=== PATIENT | female | born 1965 | race Caucasian/White ===

== ENCOUNTER 2016-09-05 20:14 | Inpatient (IN) | payer MEDICARE, MEDICAID ==
[~2016-09-05] VITALS: Ht 165.1 cm; Wt 71.8 kg
[2016-09-05 20:47] LABS: BILIRUBIN,URINE NEGATIVE (NEG); GLUCOSE,URINE NEGATIVE (NEG); NITRITE,URINE NEGATIVE (NEG); PROTEIN,URINE NEGATIVE (NEG-TRACE)
[2016-09-05] MEDS ORDERED: ONDANSETRON PF 4 MG/2 ML VIAL. ONE (20:47)
--- NOTE | 2016-09-05 20:54 | PHYS DOC ---
Past Medical History Past Medical History: DVT, GERD, Kidney Stone Past Surgical History: Cholecystectomy, Hysterectomy, Tonsillectomy, Tubal ligation, Other Additional Past Surgical Histo: subclavial stent , titanium plate c5-c6, kidney stone removal, frozen shoul Alcohol Use: None Drug Use: None Adult General Chief Complaint Chief Complaint: FLANK PAIN HPI HPI Patient is a 50 year old female who presents with complaint of right-sided flank pain. Patient states that her symptoms started suddenly today prior to arrival. Patient states that she is having colicky 10 out of 10 pain in her right flank. Patient admits to history kidney stones and states that her symptoms feel very similar to previous episodes. Patient states that she last had a kidney stone pass in June 2016. Patient took Tylenol prior to arrival with no improvement in symptoms. Patient states that she is currently visiting family from out of town. Denies any known exacerbating factors. Review of Systems Review of Systems Constitutional: Denies fever or chills [] Eyes: Denies change in visual acuity, redness, or eye pain [] HENT: Denies nasal congestion or sore throat [] Respiratory: Denies cough or shortness of breath [] Cardiovascular: No additional information not addressed in HPI [] GI: Nausea, vomiting, abdominal pain, denies bloody stools or diarrhea [] : Right flank pain, denies dysuria or hematuria [] Musculoskeletal: Denies back pain or joint pain [] Integument: Denies rash or skin lesions [] Neurologic: Denies headache, focal weakness or sensory changes [] Endocrine: Denies polyuria or polydipsia [] Current Medications Current Medications Current Medications Medications (Trade) Dose Ordered Sig/Denilson Start Time Stop Time Status Last Admin Dose Admin Ceftriaxone Sodium (Rocephin 1gm Ivpb For Omni) 50 ml @ 100 mls/hr 1X ONCE 09/05/16 21:30 09/05/16 21:59 09/05/16 21:36 100 MLS/HR Famotidine 20 mg 20 mg 1X ONCE 09/05/16 21:00 09/05/16 21:01 DC 09/05/16 20:56 20 MG Ketorolac Tromethamine (Toradol) 30 mg 1X ONCE 09/05/16 21:30 09/05/16 21:31 DC 09/05/16 21:35 30 MG Morphine Sulfate 4 mg 4 mg PRN Q15MIN PRN 09/05/16 21:00 09/06/16 20:59 09/05/16 21:35 4 MG Ondansetron HCl (Zofran) 4 mg 1X ONCE 09/05/16 21:00 09/05/16 21:01 DC 09/05/16 20:57 4 MG Sodium Chloride (Iv Sodium Chloride 0.9% 1000ml Bag) 1,000 ml @ 1,000 mls/hr Q1H 09/05/16 21:00 09/05/16 21:59 09/05/16 20:55 1,000 MLS/HR Allergies Allergies Allergies Coded Allergies Type Severity Reaction Last Updated Verified Penicillins Allergy Intermediate Itching 09/05/16 Yes simvastatin Allergy Intermediate Unknown 09/05/16 Yes acetaminophen Adverse Reaction Intermediate Nausea and Vomiting 09/05/16 Yes codeine Adverse Reaction Intermediate Nausea and Vomiting 09/05/16 Yes hydrocodone Adverse Reaction Intermediate Nausea and Vomiting 09/05/16 Yes Physical Exam Physical Exam Constitutional: Alert, afebrile, appears in moderate to severe discomfort. [] HENT: Normocephalic, atraumatic, bilateral external ears normal, oropharynx moist, no oral exudates, nose normal. [] Eyes: PERRLA, EOMI, conjunctiva normal, no discharge. [] Neck: Normal range of motion, no tenderness, supple, no stridor. [] Cardiovascular:Heart rate regular rhythm, no murmur [] Lungs & Thorax: Bilateral breath sounds clear to auscultation [] Abdomen: Bowel sounds normal, soft, no tenderness, no masses, no pulsatile masses. [] Skin: Warm, dry, no erythema, no rash. [] Back: No midline tenderness, right CVA tenderness, no flank ecchymosis. [] Extremities: No tenderness, no cyanosis, no clubbing, ROM intact, no edema. [] Neurologic: Alert and oriented X 3, normal motor function, normal sensory function, no focal deficits noted. [] Current Patient Data Vital Signs Vital Signs Date Time Temp Pulse Resp B/P Pulse Ox O2 Delivery O2 Flow Rate FiO2 09/05/16 21:35 20 99 Room Air 09/05/16 20:24 97.5 80 148/100 97.5 Lab Values Laboratory Tests Test 09/05/16 20:40 White Blood Count 15.1x10^3/uL (4.0-11.0) H Red Blood Count 4.74x10^6/uL (3.50-5.40) Hemoglobin 14.5g/dL (12.0-15.5) Hematocrit 44.3% (36.0-47.0) Mean Corpuscular Volume 94fL (79-100) Mean Corpuscular Hemoglobin 31pg (25-35) Mean Corpuscular Hemoglobin Concent 33g/dL (31-37) Red Cell Distribution Width 13.8% (11.5-14.5) Platelet Count 331x10^3/uL (140-400) Neutrophils (%) (Auto) 76% (31-73) H Lymphocytes (%) (Auto) 12% (24-48) L Monocytes (%) (Auto) 8% (0-9) Eosinophils (%) (Auto) 2% (0-3) Basophils (%) (Auto) 1% (0-3) Neutrophils # (Auto) 11.5x10^3uL (1.8-7.7) H Lymphocytes # (Auto) 1.9x10^3/uL (1.0-4.8) Monocytes # (Auto) 1.2x10^3/uL (0.0-1.1) H Eosinophils # (Auto) 0.4x10^3/uL (0.0-0.7) Basophils # (Auto) 0.2x10^3/uL (0.0-0.2) Urine Collection Type Unknown Urine Color Yellow Urine Clarity Cloudy Urine pH 5.0 Urine Specific [place] >=1.030 Urine Protein Negativemg/dL (NEG-TRACE) Urine Glucose (UA) Negativemg/dL (NEG) Urine Ketones (Stick) Negativemg/dL (NEG) Urine Blood Moderate (NEG) Urine Nitrite Negative (NEG) Urine Bilirubin Negative (NEG) Urine Urobilinogen Dipstick 1.0mg/dL (0.2 mg/dL) Urine Leukocyte Esterase Moderate (NEG) Urine RBC 11-20/HPF (0-2) Urine WBC 20-40/HPF (0-4) Urine Squamous Epithelial Cells Mod/LPF Urine Amorphous Sediment Present/HPF Urine Bacteria Few/HPF (0-FEW) Urine Hyaline Casts Few/HPF Urine Mucus Marked/LPF Sodium Level 143mmol/L (136-145) Potassium Level 3.9mmol/L (3.5-5.1) Chloride Level 107mmol/L (98-107) Carbon Dioxide Level 21mmol/L (21-32) Anion Gap 15 (6-14) H Blood Urea Nitrogen 23mg/dL (7-20) H Creatinine 0.9mg/dL (0.6-1.0) Estimated GFR (Cockcroft-Gault) 65.8 BUN/Creatinine Ratio 26 (6-20) H Glucose Level 124mg/dL (70-99) H Calcium Level 9.4mg/dL (8.5-10.1) Total Bilirubin 0.3mg/dL (0.2-1.0) Aspartate Amino Transferase (AST) 11U/L (15-37) L Alanine Aminotransferase (ALT) 23U/L (14-59) Alkaline Phosphatase 137U/L (46-116) H Total Protein 7.3g/dL (6.4-8.2) Albumin 4.3g/dL (3.4-5.0) Albumin/Globulin Ratio 1.4 (1.0-1.7) Lipase 173U/L (73-393) Laboratory Tests 09/05/16 20:40 Laboratory Tests 09/05/16 20:40 EKG EKG Not performed [] Radiology/Procedures Radiology/Procedures [facility] [address] [place] [address] IMAGING REPORT Signed PATIENT: KITA DIETRICH ACCOUNT: [id number] : 1965 LOCATION: ER AGE: 50 SEX: F EXAM STATUS: REG ER ORD. PHYSICIAN: PEDRO PAULSON MD REASON: right-sided flank pain, history of kidney stones PROCEDURE: ABDOMEN PELVIS WO CONTRAST PROCEDURE CT of the abdomen and pelvis without contrast HISTORY Right flank pain for 2 days and nausea TECHNIQUE Noncontrast helical CT scanning of the abdomen and pelvis was performed. Without GI contrast, the sensitivity to detect GI tract pathology is decreased. Without IV contrast, the sensitivity to detect organ pathology is decreased. FINDINGS The liver is homogeneous in appearance on this noncontrast study and is normal in size. The spleen is homogeneous appearance on this noncontrast study and is normal in size. The pancreas is homogeneous appearance on this noncontrast study and is not enlarged. There has been prior cholecystectomy. No adrenal masses are seen. There is an 8 millimeter stone at at that proximal right ureter just below the UPJ with moderate right hydronephrosis and perinephric edema. The urinary bladder wall is smooth. No focal aneurysmal dilatation of the abdominal aorta is seen. No enlarged abdominal or pelvic lymphadenopathy is seen. No free intraperitoneal fluid or free intraperitoneal air is seen. No obstructive bowel pattern or inflammatory changes are seen. The lung bases are clear. No osteolytic process is seen. The appendix is normal. The uterus and left ovary are not seen and could be small or surgically removed. There is a cystic mass in the right hemipelvis posteriorly that measures 5.6 by 2.8 centimeters. IMPRESSION 1. 8 millimeter stone proximal right ureter with moderate hydronephrosis. 2. Partially cystic mass in the right hemipelvis posteriorly is presumably an abnormal right ovary. This would be difficult to visualize by transabdominal ultrasound due to its far posterior location. Recommend correlation with CA 125. Consider a follow-up transvaginal ultrasound as an outpatient. Electronically signed by: Lauryn Ortiz MD (Sep 05, 2016 21:35:02) DICTATED and SIGNED BY: LAURYN ORTIZ III, MD DATE: 09/05/162134 CC: PEDRO PAULSON MD; NO PCP ~ [] Course & Med Decision Making Course & Med Decision Making Pertinent Labs and Imaging studies reviewed. (See chart for details) The patient was given IV morphine, Zofran, IV fluids. Patient found to have an 8 mm obstructing right ureteral stone with concomitant urinary tract infection. The patient was started on IV Rocephin. Patient will be admitted to the hospital for continued treatment of symptoms and likely need for cystoscopy and ureteral stent placement. Patient had to Dr. Plascencia. A consult was placed to Dr. Hinojosa. Mickie Disclaimer Mickie Disclaimer This electronic medical record was generated, in whole or in part, using a voice recognition dictation system. Departure Departure Impression: Primary Impression: Right ureteral stone Additional Impression: UTI (urinary tract infection) Disposition: 09 ADMITTED INPATIENT Admitting Physician: Molly Plascencia Condition: STABLE Problem Qualifiers Additional Impression: UTI (urinary tract infection) Urinary tract infection type: site unspecified Hematuria presence: with hematuria Qualified Code: N39.0 - Urinary tract infection, site not specified PEDRO PAULSON MD Sep 05, 2016 20:54
[2016-09-05 20:57] LABS: BASO # 0.2 x10^3/uL (0.0-0.2); BASO % 1 % (0-3); EOS % 2 % (0-3); HEMATOCRIT 44.3 % (36.0-47.0); HEMOGLOBIN 14.5 g/dL (12.0-15.5); LYMPH # 1.9 x10^3/uL (1.0-4.8); LYMPH % 12 % (24-48); MEAN CORPUSCULAR HEMOGLOBIN 31 pg (25-35); MEAN CORPUSCULAR HGB CONC 33 g/dL (31-37); MEAN CORPUSCULAR VOLUME 94 fL (79-100); MONO % 8 % (0-9); NEUT % 76 % (31-73); PLATELET COUNT 331 x10^3/uL (140-400); RED BLOOD COUNT 4.74 x10^6/uL (3.50-5.40); RED CELL DISTRIBUTION WIDTH 13.8 % (11.5-14.5); WHITE BLOOD COUNT 15.1 x10^3/uL (4.0-11.0)
[2016-09-05] MEDS: MORPHINE SULFATE 4 MG/ML DISP.SYRIN. IV/SQ PRN ×2 (20:57→21:35)
[2016-09-05 20:58] LABS: BACTERIA,URINE FEW /HPF (0-FEW); SQUAMOUS EPITHELIAL CELL,UR MOD /LPF; WBC,URINE 20-40 /HPF (0-4)
[2016-09-05] MEDS ORDERED: FAMOTIDINE 20 MG/2 ML VIAL IVP ONE (21:00)
[2016-09-05] MEDS ORDERED: ONDANSETRON PF 4 MG/2 ML VIAL. IV ONE (21:00)
[2016-09-05] MEDS ORDERED: IV NORMAL SALINE 1000ML BAG 1,000 ML IV SCH (21:00)
[2016-09-05 21:10] LABS: CALCIUM 9.4 mg/dL (8.5-10.1); CREATININE 0.9 mg/dL (0.6-1.0); GFR 65.8; POTASSIUM 3.9 mmol/L (3.5-5.1)
[2016-09-05 21:15] LABS: ALBUMIN 4.3 g/dL (3.4-5.0); ALBUMIN/GLOBULIN RATIO 1.4 (1.0-1.7); TOTAL BILIRUBIN 0.3 mg/dL (0.2-1.0); TOTAL PROTEIN 7.3 g/dL (6.4-8.2)
[2016-09-05] MEDS ORDERED: KETOROLAC TROMETHAMINE 30 MG/ML SYRINGE. IV ONE (21:30)
[2016-09-05] MEDS ORDERED: CEFTRIAXONE 1GM IVPB FOR OMNI 50 ML IV ONE (21:30)
--- NOTE | 2016-09-05 21:36 | RAD ---
PROCEDURE CT of the abdomen and pelvis without contrast HISTORY Right flank pain for 2 days and nausea TECHNIQUE Noncontrast helical CT scanning of the abdomen and pelvis was performed. Without GI contrast, the sensitivity to detect GI tract pathology is decreased. Without IV contrast, the sensitivity to detect organ pathology is decreased. FINDINGS The liver is homogeneous in appearance on this noncontrast study and is normal in size. The spleen is homogeneous appearance on this noncontrast study and is normal in size. The pancreas is homogeneous appearance on this noncontrast study and is not enlarged. There has been prior cholecystectomy. No adrenal masses are seen. There is an 8 millimeter stone at at that proximal right ureter just below the UPJ with moderate right hydronephrosis and perinephric edema. The urinary bladder wall is smooth. No focal aneurysmal dilatation of the abdominal aorta is seen. No enlarged abdominal or pelvic lymphadenopathy is seen. No free intraperitoneal fluid or free intraperitoneal air is seen. No obstructive bowel pattern or inflammatory changes are seen. The lung bases are clear. No osteolytic process is seen. The appendix is normal. The uterus and left ovary are not seen and could be small or surgically removed. There is a cystic mass in the right hemipelvis posteriorly that measures 5.6 by 2.8 centimeters. IMPRESSION 1. 8 millimeter stone proximal right ureter with moderate hydronephrosis. 2. Partially cystic mass in the right hemipelvis posteriorly is presumably an abnormal right ovary. This would be difficult to visualize by transabdominal ultrasound due to its far posterior location. Recommend correlation with CA 125. Consider a follow-up transvaginal ultrasound as an outpatient. Electronically signed by: Siva Lopez MD (Sep 05, 2016 21:35:02)
[2016-09-05] MEDS ORDERED: ONDANSETRON PF 4 MG/2 ML VIAL. IV PRN (22:00)
--- NOTE | 2016-09-05 22:42 | ACF ---
Admit Criteria Forms Admit Criteria Forms Admit Criteria Forms RENAL COLIC AND KIDNEY STONES Clinical Indications for Admission to Inpatient Care ( Place 'X' for any and all applicable criteria): Admission is indicated for ANY ONE of the following (1)(2)(3)(4): [X]I. Inpatient admission required rather than observation care (Also use Renal Colic and Kidney Stones: Observation Care Criteria as appropriate) because of ANY ONE of the following: [ ]a) Severe pain requiring acute inpatient management [X]b) Urinary tract infection identified [ ]c) Vomiting that is severe or persistent [ ]d) IV fluid required rather than oral rehydration to replace significant ongoing (eg, for greater than 24 hours) losses (greater than 200 mL/hr or 3 L/m2 per day) [ ]e) Percutaneous or open drainage (eg, abscess, biliary tract) procedures [ ]f) Other condition, treatment or monitoring requiring inpatient admission [ ]II. Impending acute renal failure [ ]III. Bilateral obstruction [ ]IV. Single kidney with obstruction [ ]V. Transplanted kidney with obstruction [ ]. Possible open surgical procedure needed (eg, pyonephrosis, stone removal not amendable to other means) [ ]VII. Hemodynamic instability Extended stay beyond goal length of stay may be needed for(2)(3)(31): [ ]a) Failed initial stone removal (32) [ ]b) Pyonephrosis [ ]c) Obstructive uropathy with urinary tract infection [ ]d) Procedure complications [ ]e) Comorbidities (22) The original [employer] content created by [employer] has been revised. The portions of the content which have been revised are identified through the use of italic text or in bold, and [facility] has neither reviewed nor approved the modified material. All other unmodified content is copyright [employer]. Please see references footnoted in the original [employer] edition 2016 PATIENCE GARCIA Sep 05, 2016 22:42
[2016-09-05 23:05] VITALS: BP 121/70
[2016-09-05] MEDS: MORPHINE SULFATE 4 MG/ML DISP.SYRIN. IV PRN (23:46)
[2016-09-06] MEDS: IV NORMAL SALINE 1000ML BAG 1,000 ML IV SCH ×2 (00:30→06:00)
[2016-09-06] MEDS: MORPHINE SULFATE 4 MG/ML DISP.SYRIN. IV PRN ×5 (01:50→20:13)
[2016-09-06 03:59] VITALS: BP 105/81
[2016-09-06 05:58] LABS: BASO # 0.1 x10^3/uL (0.0-0.2); BASO % 1 % (0-3); EOS % 3 % (0-3); HEMATOCRIT 40.3 % (36.0-47.0); HEMOGLOBIN 13.2 g/dL (12.0-15.5); LYMPH # 2.1 x10^3/uL (1.0-4.8); LYMPH % 22 % (24-48); MEAN CORPUSCULAR HEMOGLOBIN 31 pg (25-35); MEAN CORPUSCULAR HGB CONC 33 g/dL (31-37); MEAN CORPUSCULAR VOLUME 95 fL (79-100); MONO % 9 % (0-9); NEUT % 65 % (31-73); PLATELET COUNT 266 x10^3/uL (140-400); RED BLOOD COUNT 4.26 x10^6/uL (3.50-5.40); RED CELL DISTRIBUTION WIDTH 13.8 % (11.5-14.5); WHITE BLOOD COUNT 9.4 x10^3/uL (4.0-11.0)
[2016-09-06 06:09] LABS: CALCIUM 8.6 mg/dL (8.5-10.1); CREATININE 0.8 mg/dL (0.6-1.0); GFR 75.3; POTASSIUM 3.7 mmol/L (3.5-5.1)
[2016-09-06 07:00] VITALS: BP 108/74
[2016-09-06] MEDS: IV 1/2 NORMAL SALINE 1,000 ML IV SCH ×3 (10:15→21:41)
[2016-09-06] MEDS ORDERED: ONDANSETRON PF 4 MG/2 ML VIAL. IV PRN (10:15)
[2016-09-06 11:00] VITALS: BP 100/62
[2016-09-06] MEDS ORDERED: CHOL10007 PO (11:22)
[2016-09-06] MEDS ORDERED: ASPI81TA2 PO (11:22)
[2016-09-06] MEDS ORDERED: ASCO500T2 PO (11:22)
[2016-09-06] MEDS ORDERED: TOPI50TA4 PO (11:22)
[2016-09-06] MEDS ORDERED: GEMF600T3 PO (11:22)
[2016-09-06] MEDS ORDERED: TRAZ100T12 PO (11:22)
[2016-09-06] MEDS ORDERED: PANT40TA5 PO (11:22)
[2016-09-06] MEDS: CHOLECALCIFEROL (VITAMIN D3) 1,000 UNIT TABLET PO SCH (12:14)
[2016-09-06] MEDS: ASCORBIC ACID 500 MG TABLET PO SCH (12:14)
[2016-09-06] MEDS: TOPIRAMATE 25 MG TABLET. PO SCH ×2 (12:14→20:13)
[2016-09-06] MEDS: PANTOPRAZOLE 40 MG TABLET. PO SCH (12:14)
[2016-09-06] MEDS: GEMFIBROZIL 600 MG TABLET. PO SCH ×2 (12:14→20:13)
[2016-09-06] MEDS ORDERED: HYDROCODONE/APAP 5/325MG TABLET. PO PRN (12:15)
[2016-09-06] MEDS: ASPIRIN 81 MG TAB.CHEW PO SCH (12:15)
--- NOTE | 2016-09-06 12:18 | PDOC1 ---
History and Physical Date of Admission Date of Admission 09/05/16 Identification/Chief Complaint Chief Complaint right flank pain Problems: Source Source: Chart review, Patient History of Present Illness History of Present Illness HPI HPI Patient is a 50 year old female who presents with complaint of right-sided flank pain yesterday. pt has had h/o right side kidney stone 4 times in the past, last time was 06/2016 , she dosenot know the type and not taking any specific meds for it. She comes from [place] visiting family, need to return [place] for rt ovary cyst sx next . Pt said the pain was right abd, flank, 10/10. no dysuria. CT showed 8 millimeter stone proximal right ureter with moderate hydronephrosis. Past Medical History Past Medical History DVT, GERD, Kidney Stone Past Surgical History Past Surgical History Cholecystectomy, Hysterectomy, Tonsillectomy, Tubal ligation, Other Additional Past Surgical Histo: subclavial stent , titanium plate c5-c6, kidney stone removal, frozen shoul Alcohol Use: None Family History Family History: Cancer Social History Smoke: <1 pack per day ALCOHOL: social Drugs: None Current Problem List Problem List Problems Medical Problems: (1) Right ureteral stone Status: Acute (2) UTI (urinary tract infection) Status: Acute Current Medications Current Medications Current Medications Medications (Trade) Dose Ordered Sig/Denilson Start Time Stop Time Status Last Admin Dose Admin Ascorbic Acid (Vitamin C) 500 mg DAILY 09/06/16 12:00 Aspirin (Children'S Aspirin) 81 mg DAILY 09/06/16 12:00 Ceftriaxone Sodium 1 gm/ Sodium Chloride 50 ml @ 100 mls/hr Q24H 09/06/16 22:00 Ceftriaxone Sodium (Rocephin 1gm Ivpb For Omni) 50 ml @ 100 mls/hr 1X ONCE 09/05/16 21:30 09/05/16 21:59 DC 09/05/16 21:36 100 MLS/HR Famotidine 20 mg 20 mg 1X ONCE 09/05/16 21:00 09/05/16 21:01 DC 09/05/16 20:56 20 MG Gemfibrozil (Lopid) 600 mg BID 09/06/16 12:00 Ketorolac Tromethamine (Toradol) 30 mg 1X ONCE 09/05/16 21:30 09/05/16 21:31 DC 09/05/16 21:35 30 MG Morphine Sulfate 4 mg 4 mg PRN Q2HR PRN 09/05/16 22:00 09/06/16 21:59 09/06/16 11:06 4 MG Ondansetron HCl (Zofran) 4 mg PRN Q6HRS PRN 09/06/16 10:15 Ondansetron HCl 4 mg 4 mg STK-MED ONCE 09/05/16 20:47 09/05/16 20:48 DC Pantoprazole Sodium (Protonix) 40 mg DAILY 09/06/16 12:00 Sodium Chloride (Iv Sodium Chloride 0.45%) 1,000 ml @ 125 mls/hr Q8H 09/06/16 10:15 09/06/16 10:15 125 MLS/HR Sodium Chloride (Iv Sodium Chloride 0.9% 1000ml Bag) 1,000 ml @ 1,000 mls/hr Q1H 09/05/16 21:00 09/05/16 21:59 DC 09/05/16 20:55 1,000 MLS/HR Tamsulosin HCl (Flomax) 0.4 mg QHS 09/06/16 21:00 Topiramate (Topamax) 50 mg BID 09/06/16 12:00 Trazodone HCl (Desyrel) 200 mg HS 09/06/16 21:00 Vitamin D (Vitamin D3) 1,000 unit DAILY 09/06/16 12:00 Allergies Allergies Allergies Coded Allergies Type Severity Reaction Last Updated Verified Penicillins Allergy Intermediate Itching 09/05/16 Yes simvastatin Allergy Intermediate Unknown 09/05/16 Yes acetaminophen Adverse Reaction Intermediate Nausea and Vomiting 09/05/16 Yes codeine Adverse Reaction Intermediate Nausea and Vomiting 09/05/16 Yes hydrocodone Adverse Reaction Intermediate Nausea and Vomiting 09/05/16 Yes ROS Review of System CONSTITUTIONAL: No fever or chills EYES: No recent changes SKIN: No rash or itching CARDIOVASCULAR: No chest pain, syncope, palpitations, or edema RESPIRATORY: No SOB or cough GASTROINTESTINAL: No nausea, vomiting or abdominal pain NEUROLOGICAL: No headaches or weakness ENDOCRINE: No cold or heat intolerance GENITOURINARY: No urgency or frequency of urination MUSCULOSKELETAL: No back pain or joint pain LYMPHATICS: No enlarged lymph nodes PSYCHIATRIC: No anxiety or depression Physical Exam Physical Exam GEN.: No apparent distress. Alert and oriented. HEENT: Head is normocephalic, atraumatic NECK: Supple. LUNGS: Clear to auscultation. HEART: RRR, S1, S2 present. Peripheral pulses intact ABDOMEN: Soft, Positive bowel sounds. right abd tenderness. EXTREMITIES: Without any cyanosis. NEUROLOGIC: Normal speech, normal tone PSYCHIATRIC: Normal affect, normal mood. SKIN: No ulcerations Vitals Vitals Vital Signs Date Time Temp Pulse Resp B/P Pulse Ox O2 Delivery O2 Flow Rate FiO2 09/06/16 11:36 97 Room Air 09/06/16 11:00 98.2 67 20 100/62 98.2 Labs Labs Laboratory Tests Test 09/05/16 20:40 09/06/16 05:05 White Blood Count 15.1x10^3/uL (4.0-11.0) 9.4x10^3/uL (4.0-11.0) Red Blood Count 4.74x10^6/uL (3.50-5.40) 4.26x10^6/uL (3.50-5.40) Hemoglobin 14.5g/dL (12.0-15.5) 13.2g/dL (12.0-15.5) Hematocrit 44.3% (36.0-47.0) 40.3% (36.0-47.0) Mean Corpuscular Volume 94fL (79-100) 95fL (79-100) Mean Corpuscular Hemoglobin 31pg (25-35) 31pg (25-35) Mean Corpuscular Hemoglobin Concent 33g/dL (31-37) 33g/dL (31-37) Red Cell Distribution Width 13.8% (11.5-14.5) 13.8% (11.5-14.5) Platelet Count 331x10^3/uL (140-400) 266x10^3/uL (140-400) Neutrophils (%) (Auto) 76% (31-73) 65% (31-73) Lymphocytes (%) (Auto) 12% (24-48) 22% (24-48) Monocytes (%) (Auto) 8% (0-9) 9% (0-9) Eosinophils (%) (Auto) 2% (0-3) 3% (0-3) Basophils (%) (Auto) 1% (0-3) 1% (0-3) Neutrophils # (Auto) 11.5x10^3uL (1.8-7.7) 6.1x10^3uL (1.8-7.7) Lymphocytes # (Auto) 1.9x10^3/uL (1.0-4.8) 2.1x10^3/uL (1.0-4.8) Monocytes # (Auto) 1.2x10^3/uL (0.0-1.1) 0.8x10^3/uL (0.0-1.1) Eosinophils # (Auto) 0.4x10^3/uL (0.0-0.7) 0.3x10^3/uL (0.0-0.7) Basophils # (Auto) 0.2x10^3/uL (0.0-0.2) 0.1x10^3/uL (0.0-0.2) Urine Collection Type Unknown Urine Color Yellow Urine Clarity Cloudy Urine pH 5.0 Urine Specific [place] >=1.030 Urine Protein Negativemg/dL (NEG-TRACE) Urine Glucose (UA) Negativemg/dL (NEG) Urine Ketones (Stick) Negativemg/dL (NEG) Urine Blood Moderate (NEG) Urine Nitrite Negative (NEG) Urine Bilirubin Negative (NEG) Urine Urobilinogen Dipstick 1.0mg/dL (0.2 mg/dL) Urine Leukocyte Esterase Moderate (NEG) Urine RBC 11-20/HPF (0-2) Urine WBC 20-40/HPF (0-4) Urine Squamous Epithelial Cells Mod/LPF Urine Amorphous Sediment Present/HPF Urine Bacteria Few/HPF (0-FEW) Urine Hyaline Casts Few/HPF Urine Mucus Marked/LPF Sodium Level 143mmol/L (136-145) 146mmol/L (136-145) Potassium Level 3.9mmol/L (3.5-5.1) 3.7mmol/L (3.5-5.1) Chloride Level 107mmol/L (98-107) 112mmol/L (98-107) Carbon Dioxide Level 21mmol/L (21-32) 24mmol/L (21-32) Anion Gap 15 (6-14) 10 (6-14) Blood Urea Nitrogen 23mg/dL (7-20) 20mg/dL (7-20) Creatinine 0.9mg/dL (0.6-1.0) 0.8mg/dL (0.6-1.0) Estimated GFR (Cockcroft-Gault) 65.8 75.3 BUN/Creatinine Ratio 26 (6-20) Glucose Level 124mg/dL (70-99) 92mg/dL (70-99) Calcium Level 9.4mg/dL (8.5-10.1) 8.6mg/dL (8.5-10.1) Total Bilirubin 0.3mg/dL (0.2-1.0) Aspartate Amino Transf (AST/SGOT) 11U/L (15-37) Alanine Aminotransferase (ALT/SGPT) 23U/L (14-59) Alkaline Phosphatase 137U/L (46-116) Total Protein 7.3g/dL (6.4-8.2) Albumin 4.3g/dL (3.4-5.0) Albumin/Globulin Ratio 1.4 (1.0-1.7) Lipase 173U/L (73-393) Laboratory Tests Test 09/05/16 20:40 09/06/16 05:05 White Blood Count 15.1x10^3/uL (4.0-11.0) 9.4x10^3/uL (4.0-11.0) Red Blood Count 4.74x10^6/uL (3.50-5.40) 4.26x10^6/uL (3.50-5.40) Hemoglobin 14.5g/dL (12.0-15.5) 13.2g/dL (12.0-15.5) Hematocrit 44.3% (36.0-47.0) 40.3% (36.0-47.0) Mean Corpuscular Volume 94fL (79-100) 95fL (79-100) Mean Corpuscular Hemoglobin 31pg (25-35) 31pg (25-35) Mean Corpuscular Hemoglobin Concent 33g/dL (31-37) 33g/dL (31-37) Red Cell Distribution Width 13.8% (11.5-14.5) 13.8% (11.5-14.5) Platelet Count 331x10^3/uL (140-400) 266x10^3/uL (140-400) Neutrophils (%) (Auto) 76% (31-73) 65% (31-73) Lymphocytes (%) (Auto) 12% (24-48) 22% (24-48) Monocytes (%) (Auto) 8% (0-9) 9% (0-9) Eosinophils (%) (Auto) 2% (0-3) 3% (0-3) Basophils (%) (Auto) 1% (0-3) 1% (0-3) Neutrophils # (Auto) 11.5x10^3uL (1.8-7.7) 6.1x10^3uL (1.8-7.7) Lymphocytes # (Auto) 1.9x10^3/uL (1.0-4.8) 2.1x10^3/uL (1.0-4.8) Monocytes # (Auto) 1.2x10^3/uL (0.0-1.1) 0.8x10^3/uL (0.0-1.1) Eosinophils # (Auto) 0.4x10^3/uL (0.0-0.7) 0.3x10^3/uL (0.0-0.7) Basophils # (Auto) 0.2x10^3/uL (0.0-0.2) 0.1x10^3/uL (0.0-0.2) Urine Collection Type Unknown Urine Color Yellow Urine Clarity Cloudy Urine pH 5.0 Urine Specific [place] >=1.030 Urine Protein Negativemg/dL (NEG-TRACE) Urine Glucose (UA) Negativemg/dL (NEG) Urine Ketones (Stick) Negativemg/dL (NEG) Urine Blood Moderate (NEG) Urine Nitrite Negative (NEG) Urine Bilirubin Negative (NEG) Urine Urobilinogen Dipstick 1.0mg/dL (0.2 mg/dL) Urine Leukocyte Esterase Moderate (NEG) Urine RBC 11-20/HPF (0-2) Urine WBC 20-40/HPF (0-4) Urine Squamous Epithelial Cells Mod/LPF Urine Amorphous Sediment Present/HPF Urine Bacteria Few/HPF (0-FEW) Urine Hyaline Casts Few/HPF Urine Mucus Marked/LPF Sodium Level 143mmol/L (136-145) 146mmol/L (136-145) Potassium Level 3.9mmol/L (3.5-5.1) 3.7mmol/L (3.5-5.1) Chloride Level 107mmol/L (98-107) 112mmol/L (98-107) Carbon Dioxide Level 21mmol/L (21-32) 24mmol/L (21-32) Anion Gap 15 (6-14) 10 (6-14) Blood Urea Nitrogen 23mg/dL (7-20) 20mg/dL (7-20) Creatinine 0.9mg/dL (0.6-1.0) 0.8mg/dL (0.6-1.0) Estimated GFR (Cockcroft-Gault) 65.8 75.3 BUN/Creatinine Ratio 26 (6-20) Glucose Level 124mg/dL (70-99) 92mg/dL (70-99) Calcium Level 9.4mg/dL (8.5-10.1) 8.6mg/dL (8.5-10.1) Total Bilirubin 0.3mg/dL (0.2-1.0) Aspartate Amino Transf (AST/SGOT) 11U/L (15-37) Alanine Aminotransferase (ALT/SGPT) 23U/L (14-59) Alkaline Phosphatase 137U/L (46-116) Total Protein 7.3g/dL (6.4-8.2) Albumin 4.3g/dL (3.4-5.0) Albumin/Globulin Ratio 1.4 (1.0-1.7) Lipase 173U/L (73-393) VTE Prophylaxis Ordered VTE Prophylaxis Devices: Yes VTE Pharmacological Prophylaxi: No Assessment/Plan Assessment/Plan 1. right side proximal ureter stone, 8mm, with hydronephrosis 2. h/o multiple kidney stones 3. h/o Subclavial dvt, post stents 4. GERD 5. SIRS with possible UTI, no sepsis 6. right ovary cyst, sx next Thur plan: 1. fu with uro, may need cystoscope and stent 2. ivf 3. add flomax, ceftriaxone for now 4. pain control cont home meds SAUD MAZARIEGOS MD Sep 06, 2016 12:18
[2016-09-06 15:00] VITALS: BP 110/76
--- NOTE | 2016-09-06 16:27 | PDOC ---
Provider Note Provider Note Urology: c/c right flank pain, 8mm proximal right ureteral calculus Patient has hx of kidney stones Patient examined, chart reviewed Impression: Proximal right ureteral calculus (8mm) Flank pain-improved Plan: IV hydration, analgesia, flomax KUB in AM if stone doesn't pass spontaneously will plan Stent placement on Wednesday FAYE Owens ROY K DO Sep 06, 2016 16:27
[2016-09-06 19:00] VITALS: BP 117/67
[2016-09-06] MEDS: TAMSULOSIN 0.4 MG CAP.ER.24H. PO SCH (20:13)
[2016-09-06] MEDS: traZODone 100 MG TABLET. PO SCH (21:41)
[2016-09-06] MEDS: CEFTRIAXONE SODIUM 1 GM in IV NORMAL SALINE 50ML 50 ML IV SCH (21:45)
[2016-09-06 23:00] VITALS: BP 99/62
[2016-09-07 03:00] VITALS: BP 106/67
--- NOTE | 2016-09-07 05:29 | CONS ---
DATE OF CONSULTATION: 09/06/2016 CHIEF COMPLAINT: Right flank pain, proximal right ureteral calculus. HISTORY OF PRESENT ILLNESS: This is a 50-year-old female that presented to the Emergency Room with acute right flank pain. She does have a previous history of kidney stones. She states that she has passed about 3 spontaneously, but she had one that she had to undergo lithotripsy. She experienced some nausea and vomiting with her right ureteral colic. ALLERGIES: THE PATIENT IS ALLERGIC TO PENICILLIN, ACETAMINOPHEN, CODEINE, HYDROCODONE, AND SIMVASTATIN. The patient has a history of deep vein thrombosis, GERD, previous kidney stones. PAST SURGICAL HISTORY: She has had a cholecystectomy, hysterectomy, tonsillectomy, previous tubal ligation, placement of subclavian stent due to blood clots in her arm. She has also had a titanium plate placed at C5-C6. She has had a history of a frozen shoulder. SOCIAL HISTORY: The patient is . She denies alcohol use. She is not a smoker. REVIEW OF SYSTEMS: A 14-point review of systems performed, most significant is her HPI. MEDICATIONS: List was reviewed. PHYSICAL EXAMINATION: GENERAL DESCRIPTION: A 50-year-old female. She is alert and oriented, in no acute distress at this time. ABDOMEN: Soft, nontender. She does experience some right flank discomfort to deep palpation. The left flank was normal. There is no suprapubic tenderness. EXTREMITIES: Good range of motion. Negative for cyanosis or edema. LABORATORY STUDIES: On admission, her white blood cell count was 15.1, today it is 9.4. Her hemoglobin is 13.2, hematocrit 40.3, platelets are adequate. Chemistries, the patient's sodium 146, potassium 3.7, her BUN is 20, her creatinine is 0.8, glucose 92, calcium within normal limits at 8.6, alkaline phosphatase slightly elevated at 137. Urinalysis cloudy, moderate leukocytes, 11-20 white blood cells, 20-40 red blood cells, trace bacteria. X-RAY STUDIES: Noncontrast CT scan was performed while the patient was in the Emergency Room. This did reveal an 8 mm calculus in the proximal right ureter just below the UPJ junction. She had moderate right hydronephrosis and also showed a cystic mass involving the right ovary. IMPRESSION: 1. Proximal right ureteral calculus (8 mm). 2. Right ureteral colic - improved. 3. Ovarian cyst. PLANS: 1. I discussed the findings with the patient. 2. We will continue IV hydration, analgesia as needed, and Flomax to see if the stone will pass spontaneously. 3. I have ordered a KUB in the morning. 4. If she does not pass the stone spontaneously, I discussed with her cystoscopy, right stent placement. 5. The patient lives in [place], and she prefers to go back to [place] after we placed a stent and has shockwave lithotripsy. 6. She is also scheduled for a right oophorectomy this coming in [place]. Thank you for the opportunity to participate in the evaluation and treatment of this patient. PAUL MCKINNEY DO DR: ARYAN/arnulfo JOB#: [id number] / [id number]
[2016-09-07 06:29] LABS: BASO # 0.1 x10^3/uL (0.0-0.2); BASO % 1 % (0-3); EOS % 3 % (0-3); HEMATOCRIT 36.7 % (36.0-47.0); HEMOGLOBIN 12.4 g/dL (12.0-15.5); LYMPH # 1.5 x10^3/uL (1.0-4.8); LYMPH % 15 % (24-48); MEAN CORPUSCULAR HEMOGLOBIN 31 pg (25-35); MEAN CORPUSCULAR HGB CONC 34 g/dL (31-37); MEAN CORPUSCULAR VOLUME 92 fL (79-100); MONO % 7 % (0-9); NEUT % 74 % (31-73); PLATELET COUNT 266 x10^3/uL (140-400); RED BLOOD COUNT 3.99 x10^6/uL (3.50-5.40); RED CELL DISTRIBUTION WIDTH 13.7 % (11.5-14.5); WHITE BLOOD COUNT 10.1 x10^3/uL (4.0-11.0)
[2016-09-07 06:34] LABS: CALCIUM 8.4 mg/dL (8.5-10.1); CREATININE 0.7 mg/dL (0.6-1.0); GFR 87.9; POTASSIUM 3.9 mmol/L (3.5-5.1)
[2016-09-07 07:00] VITALS: BP 103/66
[2016-09-07] MEDS: PANTOPRAZOLE 40 MG TABLET. PO SCH (07:45)
[2016-09-07] MEDS: GEMFIBROZIL 600 MG TABLET. PO SCH ×2 (07:45→21:01)
[2016-09-07] MEDS: ASCORBIC ACID 500 MG TABLET PO SCH (07:45)
[2016-09-07] MEDS: CHOLECALCIFEROL (VITAMIN D3) 1,000 UNIT TABLET PO SCH (07:46)
[2016-09-07] MEDS: TOPIRAMATE 25 MG TABLET. PO SCH ×2 (07:46→21:01)
--- NOTE | 2016-09-07 08:37 | RAD ---
EXAM: Abdomen, single view. HISTORY: Right-sided flank pain. COMPARISON: CT dated 09/05/2016. FINDINGS: There is gas within nondistended loops of small and large bowel. There are cholecystectomy clips and clips within the left lower quadrant due to prior lower lumbar spinal fusion. There is a 6 mm faint rounded density overlying the expected course of the mid right ureter at the level of the L3-L4 disc space, possibly artifactual or the recently demonstrated ureteral stone.. IMPRESSION: 1. 6 mm round density overlying the expected location of the right mid ureter at the level of the L3-L4 disc space, artifactual or the recently demonstrated ureteral stone. 2. Nonobstructive bowel gas pattern.
[2016-09-07] MEDS: ASPIRIN 81 MG TAB.CHEW PO SCH (08:52)
[2016-09-07] MEDS: KETOROLAC 15 MG/ML VIAL. IV PRN ×2 (10:25→17:20)
[2016-09-07 11:00] VITALS: BP 137/60
[2016-09-07] MEDS: IV 1/2 NORMAL SALINE 1,000 ML IV SCH ×2 (11:59→20:15)
--- NOTE | 2016-09-07 13:36 | PDOC ---
Provider Note Provider Note UROLOGY: Right ureteral calculus KUB- poor quality, stone has migrated distally some IMPRESSION: Right ureteral calculus Right hydronephrosis Plan: Scheduled for Cysto right stent placement tomorrow Discussed with patient she appears to understand and agreeable. PAUL MCKINNEY DO Sep 07, 2016 13:36
[2016-09-07] MEDS ORDERED: MAGNESIUM HYDROXIDE 2,400 MG/30 ML ORAL.SUSP. PO PRN (13:45)
[2016-09-07] MEDS ORDERED: BISACODYL 5 MG TABLET.DR. PO PRN (13:45)
[2016-09-07 14:45] VITALS: BP 115/68
--- NOTE | 2016-09-07 16:59 | PDOC ---
PROGRESS NOTES Chief Complaint Chief Complaint Obstructing ureteral stone ASSESSMENT AND PLAN: 1. renal colic: 2/2 [address] R. appreciate Dr Hinojosa's input: planned stent placement in AM 2. Pain control: IV suboptimal. d/w pt that she can have longer-acting PO meds 3. Constipation: at baseline, now worse with narcotics. daily dulcolax Vitals Vitals Vital Signs Date Time Temp Pulse Resp B/P Pulse Ox O2 Delivery O2 Flow Rate FiO2 09/07/16 14:45 97.9 76 20 115/68 94 Room Air 97.9 Physical Exam General: Alert, Oriented X3, Cooperative Heart: Regular rate Lungs: Clear Abdomen: Normal bowel sounds, Other (TTP RLQ and R flank) Extremities: No clubbing, No edema Skin: No rashes Labs LABS Laboratory Tests Test 09/07/16 05:20 09/07/16 05:30 Sodium Level 145mmol/L (136-145) Potassium Level 3.9mmol/L (3.5-5.1) Chloride Level 112mmol/L (98-107) Carbon Dioxide Level 19mmol/L (21-32) Anion Gap 14 (6-14) Blood Urea Nitrogen 12mg/dL (7-20) Creatinine 0.7mg/dL (0.6-1.0) Estimated GFR (Cockcroft-Gault) 87.9 Glucose Level 75mg/dL (70-99) Calcium Level 8.4mg/dL (8.5-10.1) White Blood Count 10.1x10^3/uL (4.0-11.0) Red Blood Count 3.99x10^6/uL (3.50-5.40) Hemoglobin 12.4g/dL (12.0-15.5) Hematocrit 36.7% (36.0-47.0) Mean Corpuscular Volume 92fL (79-100) Mean Corpuscular Hemoglobin 31pg (25-35) Mean Corpuscular Hemoglobin Concent 34g/dL (31-37) Red Cell Distribution Width 13.7% (11.5-14.5) Platelet Count 266x10^3/uL (140-400) Neutrophils (%) (Auto) 74% (31-73) Lymphocytes (%) (Auto) 15% (24-48) Monocytes (%) (Auto) 7% (0-9) Eosinophils (%) (Auto) 3% (0-3) Basophils (%) (Auto) 1% (0-3) Neutrophils # (Auto) 7.5x10^3uL (1.8-7.7) Lymphocytes # (Auto) 1.5x10^3/uL (1.0-4.8) Monocytes # (Auto) 0.7x10^3/uL (0.0-1.1) Eosinophils # (Auto) 0.3x10^3/uL (0.0-0.7) Basophils # (Auto) 0.1x10^3/uL (0.0-0.2) Review of Systems Review of Systems currently comfortable. fentanyl not lasting very long ANTHONY VOGT MD Sep 07, 2016 16:59
[2016-09-07] MEDS ORDERED: MORPHINE SULFATE 2 MG/ML DISP.SYRIN. IV PRN (18:00)
[2016-09-07 19:00] VITALS: BP 97/52
[2016-09-07] MEDS: traZODone 100 MG TABLET. PO SCH (21:01)
[2016-09-07] MEDS: TAMSULOSIN 0.4 MG CAP.ER.24H. PO SCH (21:01)
[2016-09-07] MEDS: BISACODYL 5 MG TABLET.DR. PO SCH (21:01)
[2016-09-07] MEDS: CEFTRIAXONE SODIUM 1 GM in IV NORMAL SALINE 50ML 50 ML IV SCH (21:02)
[2016-09-07 23:00] VITALS: BP 123/66
[2016-09-08] VITALS (8 sets, daily range): BP systolic 115–137; BP diastolic 74–89
[2016-09-08] MEDS: IV 1/2 NORMAL SALINE 1,000 ML IV SCH ×2 (04:52→12:38)
[2016-09-08] MEDS ORDERED: IOHEXOL 300 MG/ML 50 ML VIAL. ONE (06:59)
[2016-09-08] MEDS ORDERED: ONDANSETRON PF 4 MG/2 ML VIAL. IV PRN (07:00)
[2016-09-08] MEDS ORDERED: FENTANYL PF 100 MCG/2 ML VIAL. IV PRN ×2 (07:00)
[2016-09-08] MEDS ORDERED: PROCHLORPERAZINE 10 MG/2 ML VIAL. IV PRN (07:00)
[2016-09-08] MEDS ORDERED: LIDOCAINE 1% 1 ML SYRINGE. ID PRN (07:00)
[2016-09-08] MEDS ORDERED: IV RINGERS,LACTATED 1000ML 1,000 ML IV SCH (07:00)
[2016-09-08] MEDS: BISACODYL 5 MG TABLET.DR. PO SCH (08:17)
[2016-09-08] MEDS: GEMFIBROZIL 600 MG TABLET. PO SCH (08:17)
[2016-09-08] MEDS: CHOLECALCIFEROL (VITAMIN D3) 1,000 UNIT TABLET PO SCH (08:17)
[2016-09-08] MEDS: TOPIRAMATE 25 MG TABLET. PO SCH (08:17)
[2016-09-08] MEDS: ASCORBIC ACID 500 MG TABLET PO SCH (08:17)
[2016-09-08] MEDS: PANTOPRAZOLE 40 MG TABLET. PO SCH (08:18)
[2016-09-08] MEDS: KETOROLAC 15 MG/ML VIAL. IV PRN (08:22)
[2016-09-08] MEDS: ASPIRIN 81 MG TAB.CHEW PO SCH (08:58)
--- NOTE | 2016-09-08 10:48 | PDOC ---
PROGRESS NOTES Chief Complaint Chief Complaint Obstructing ureteral stone ASSESSMENT AND PLAN: 1. renal colic: 2/2 obstructing stone R. appreciate Dr Hinojosa's input: planned stent placement today 2. Pain control: IV suboptimal. d/w pt that she can have longer-acting PO meds 3. Constipation: at baseline, now worse with narcotics. daily dulcolax 4. Dispo: prob home post procedure Vitals Vitals Vital Signs Date Time Temp Pulse Resp B/P Pulse Ox O2 Delivery O2 Flow Rate FiO2 09/08/16 07:00 97.8 77 16 121/86 93 Room Air 97.8 Physical Exam General: Alert, Oriented X3, Cooperative Heart: Regular rate Lungs: Clear Abdomen: Normal bowel sounds, Other (TTP RLQ and R flank) Extremities: No clubbing, No edema Skin: No rashes Review of Systems Review of Systems pain still present, but well controlled. ANTHONY VOGT MD Sep 08, 2016 10:48
[2016-09-08] MEDS ORDERED: CEFTRIAXONE 1GM IVPB FOR OMNI 50 ML IV STA (13:38)
[2016-09-08] MEDS ORDERED: CEFTRIAXONE 1GM IVPB FOR OMNI 50 ML IV ONE (13:42)
[2016-09-08] MEDS ORDERED: PROPOFOL 20 ML IV ONE (13:43)
[2016-09-08] MEDS ORDERED: LIDOCAINE 2% 100 MG/5 ML DISP.SYRIN. ONE (13:43)
[2016-09-08] MEDS ORDERED: FENTANYL PF 100 MCG/2 ML VIAL. ONE (13:43)
[2016-09-08] MEDS ORDERED: ONDANSETRON PF 4 MG/2 ML VIAL. ONE (13:43)
[2016-09-08] MEDS ORDERED: PHENYLEPHRINE in 0.9% NACL PF 1 MG/10 ML DISP.SYRIN. IV ONE (14:11)
[2016-09-08] MEDS ORDERED: EPHEDRINE PF IN SALINE 50 MG/5 ML DISP.SYRIN. IV ONE (14:22)
--- NOTE | 2016-09-08 14:41 | PDOC ---
BRIEF OPERATIVE NOTE Date: Sep 08, 2016 Pre-Op Diagnosis Right ureteral calculus (mid right ureter) Post-Op Diagnosis Same Procedure Performed Cystoscopy placement or right ureteral stent (4.8 by 26cm) Surgeon Ashish Anesthesia Type: General Specimens Obtained None Findings calculus mid right ureter Complications None Additional Remarks Tolerated well PAUL MCKINNEY DO Sep 08, 2016 14:41
--- NOTE | 2016-09-08 18:15 | OP ---
DATE OF SURGERY: 09/08/2016 PREOPERATIVE DIAGNOSES: Right flank pain, proximal right ureteral calculus (8 mm). POSTOPERATIVE DIAGNOSES: Right flank pain, proximal right ureteral calculus (8 mm). PROCEDURE: Cystoscopy, right retrograde pyelogram, placement of indwelling right ureteral stent (4.8 Emirati x 26 cm). SURGEON: Paul Mckinney DO. ANESTHESIA: General. INDICATIONS AND JUDGMENT: This is a 50-year-old female, that presented to the Emergency Room with acute right flank pain. She underwent a CT scan which revealed 8-mm calculus in the proximal right ureter. She was placed on IV hydration and analgesia. The stone migrated distally just a small distance, but she was unable to pass the stone in spite of medical therapy. Therefore, it was felt that she would benefit from cystoscopy, stent placement, in preparation for shockwave lithotripsy. This was explained to the patient. She appeared to understand and was agreeable. DESCRIPTION OF PROCEDURE: The patient was given a gram of Rocephin. She was taken to the operating room, placed on the operating room table in a supine position, given a general anesthetic, and then placed in a dorsal lithotomy position with Hill stirrups since we do not have a cystoscopy table. A C-arm was moved into position. Rigid cystoscopy was performed. The patient has a rather prominent cystocele. I had to elevate the floor of the bladder with my finger in the vaginal vault to see the right ureteral orifice. The orifice was cannulated. Contrast was injected via 8-Emirati cone-tip ureteral catheter. A filling defect was identified in the mid right ureter. Low-grade obstruction. I then advanced a 0.035 guidewire up the right ureteral orifice up the ureter and into the renal pelvis. Following that, under fluoroscopy, I advanced a 4.8 Emirati x 26-cm double-J ureteral stent over the wire, past the stone, and into the renal pelvis. The positioning appeared to be satisfactory. Therefore, the wire was removed leaving the stent in place. The instruments were removed. The patient tolerated the procedure well and was sent to recovery room in satisfactory condition. The patient has plans to leave with her and return to [facility]. She was sent home on antibiotics, pain medicine, and she is going to follow up with her urologist in [place]. PAUL MCKINNEY DO DR: Chiquis JOB#: [id number] / [id number]
--- NOTE | 2016-09-09 00:48 | DS ---
DATE OF DISCHARGE: 09/08/2016 CHIEF COMPLAINT: Flank pain. HOSPITAL COURSE: The patient is a 50-year-old woman with multiple episodes of nephrolithiasis requiring lithotripsy and stone removal, who presented to the Emergency Room with right flank pain. She indeed was found with an 8-mm stone in her right ureter. Dr. Hinojosa from Urology was consulted. As patient was unable to pass the stone herself, stone was removed and stent was placed on 09/08/2016. The patient tolerated the procedure without any difficulties and was sent home with instructions to follow up with her urologist in [place]. DISCHARGE PHYSICAL EXAMINATION: Please refer to note from same day, discharge date 09/01/2016. DISCHARGE DIAGNOSIS: Right-sided ureteral stone, status post cystoscopy with removal of ureteral stent placement on 09/08/2016. DISCHARGE DISPOSITION: To home. DISCHARGE CONDITION: Stable. DISCHARGE MEDICATIONS: Please refer to MAR. DISCHARGE INSTRUCTIONS: The patient will follow up with her PCP as well as her urologist. ANTHONY VOGT MD DR: ADALI/nts JOB#: [id number] / [id number]
== END 2016-09-08 18:42 | disposition home or self-care (01) | DRG 694 ==
LOC: ER 20:14 → 5 SOUTH 21:40
PROVIDERS: ADMIT Internal Medicine; ATTEND Internal Medicine
PROC: 0T768DZ Dilation of Right Ureter with Intraluminal Device, Via Natural or Artificial Opening Endoscopic (ICD-10-PCS; 2016-09-08)
PROC: BT1D1ZZ Fluoroscopy of Right Kidney, Ureter and Bladder using Low Osmolar Contrast (ICD-10-PCS; principal; 2016-09-08 14:00)
DX: N13.2 Hydronephrosis with renal and ureteral calculous obstruction (principal); R65.10 Systemic inflammatory response syndrome (SIRS) of non-infectious origin without acute organ dysfunction; N39.0 Urinary tract infection, site not specified; K21.9 Gastro-esophageal reflux disease without esophagitis; K59.00 Constipation, unspecified; N83.209 Unspecified ovarian cyst, unspecified side; Z98.51 Tubal ligation status; Z87.442 Personal history of urinary calculi; Z90.49 Acquired absence of other specified parts of digestive tract; Z90.710 Acquired absence of both cervix and uterus; Z88.1 Allergy status to other antibiotic agents; Z88.5 Allergy status to narcotic agent; Z88.0 Allergy status to penicillin; Z88.8 Allergy status to other drugs, medicaments and biological substances
CPT/HCPCS: 36415; 74000; 74176; 74420; 80048; 80053; 81001; 83690; 85027; 87086; 96361; 96365; 96375; 96376; C1769; C2617; J0690; J0696; J1885; J2270; J2370; J2405; J2704; J3010; J7030; Q9967; S0028; 99285-25